=== PATIENT | female | born 1960 | race Caucasian/White ===

== ENCOUNTER → 2016-06-04 08:23 | Outpatient (CLI) | payer MEDICAID ==
[2014-07-13 11:09] VITALS: BMI 27.7
[~2016-06-04 08:23] MED LIST: ADVAIR 250/501 DISK INH; ASCORBIC ACID500 MG PO; BAYER CHEWABLE81 MG PO; CALCIUM 600 +1 EAC3 PO; FARXIGA10 MG PO; FISH OIL 1,0001 CA1 PO; GLUCOPHAGE500 MG PO; LISINOPRIL2.5 MG PO; MUCINEX600 MG PO; NEURONTIN 300300 MG PO; PEPCID40 MG PO; PRAVACHOL40 MG PO; PRILOSEC20 MG PO; SPIRIVA18 MCG INH; ULTRAM50 MG PO; VITAMIN D3400 UNI1 PO; ZYRTEC10 MG PO
[2016-06-04 09:03] LABS: HEMOGLOBIN A1C 5.7 % (4.8-6.0)
[2016-06-04 09:08] LABS: ALKALINE PHOSPHATASE 107 U/L (46-116); ALT (SGPT) 31 U/L (10-68); CALC OSMOLALITY 279 mosm/kg (275-300); CALCIUM 9.9 mg/dL (8.5-10.1); CHLORIDE - SERUM 104 mmol/L (98-107); CHOL - HDL RATIO 5.9 ratio (2.3-4.1); CHOLESTEROL, TOTAL 217 mg/dL (0-200); CREATININE - SERUM 0.7 mg/dL (0.6-1.3); GLUCOSE 105 mg/dL (74-106); HDL CHOLESTEROL 37 mg/dL (32-96); LDL CHOLESTEROL 138 mg/dL (0-100); LDL-HDL RATIO 3.7 ratio (1.5-3.5); POTASSIUM - SERUM 4.1 mmol/L (3.5-5.1); PROTEIN - SERUM 7.7 g/dL (6.4-8.2); SODIUM 139 mmol/L (136-145); TRIGLYCERIDE 212 mg/dL (30-200); UREA NITROGEN 18 mg/dL (7-18); eGFR NON AFRICAN AMERICAN > 90 mL/min (90-120)
== END | disposition home or self-care (01) ==
LOC: D.LAB 08:23
PROVIDERS: Family Medicine
DX: E78.5 Hyperlipidemia, unspecified (principal); E11.9 Type 2 diabetes mellitus without complications

== ENCOUNTER → 2016-06-09 12:35 | Outpatient (CLI) | payer MEDICAID ==
[2014-07-13 11:09] VITALS: BMI 27.7
== END | disposition home or self-care (01) ==
LOC: D.RT 12:35
DX: J45.909 Unspecified asthma, uncomplicated (principal); Z87.01 Personal history of pneumonia (recurrent)

== ENCOUNTER → 2017-03-31 09:03 | Outpatient (CLI) | payer OTHER ==
[2014-07-13 11:09] VITALS: BMI 27.7
[2017-03-31 09:58] LABS: BASOPHILS 0.6 % (0-2); EOSINOPHILS 4.7 % (0-7); HEMATOCRIT 41.1 % (36.0-48.0); HEMOGLOBIN 13.4 g/dL (12-16); IMMATURE GRANULOCYTES 0.2 % (0-5); LYMPHOCYTES 33.2 % (15-50); MCH 32.7 pg (26.0-34.0); MCHC 32.6 g/dL (31.0-37.0); MCV 100.2 fL (80.0-100.0); MEAN PLATELET VOLUME 10.6 fL (7.4-10.4); MONOCYTES 7.1 % (2-11); NEUTROPHILS 54.2 % (40-80); PLATELET COUNT 310 10x3/uL (130-400); RDW 13.8 % (11.5-14.5); WBC 8.8 10x3/uL (4.8-10.8)
[2017-03-31 10:14] LABS: HEMOGLOBIN A1C 5.6 % (4.8-6.0)
[2017-03-31 10:17] LABS: APPEARANCE CLEAR (CLEAR); COLOR YELLOW (YELLOW)
[2017-03-31 10:18] LABS: BILIRUBIN NEGATIVE (NEGATIVE); GLUCOSE 100 mg/dL (NEGATIVE); KETONE NEGATIVE (NEGATIVE); NITRITE NEGATIVE (NEGATIVE); PROTEIN NEGATIVE (NEGATIVE); UROBILINOGEN NORMAL (NORMAL)
[2017-03-31 10:19] LABS: BACTERIA FEW /hpf (NONE SEEN); EPITHELIAL CELLS OCC /hpf (0-5); RED CELLS - URINE 0-5 /hpf (0-5); WHITE CELLS - URINE 0-5 /hpf (0-5)
[2017-03-31 10:20] LABS: MUCUS <1+ /lpf (NONE SEEN)
[2017-03-31 10:22] LABS: ALBUMIN 4.1 g/dL (3.4-5.0); ALKALINE PHOSPHATASE 91 U/L (46-116); ALT (SGPT) 22 U/L (10-68); BILIRUBIN - TOTAL 0.27 mg/dL (0.2-1.3); CALC OSMOLALITY 284 mosm/kg (275-300); CHLORIDE - SERUM 105 mmol/L (98-107); CHOL - HDL RATIO 4.7 ratio (2.3-4.1); CHOLESTEROL, TOTAL 229 mg/dL (0-200); CREATININE - SERUM 0.6 mg/dL (0.6-1.3); GLUCOSE 96 mg/dL (74-106); HDL CHOLESTEROL 49 mg/dL (32-96); LDL CHOLESTEROL 134 mg/dL (0-100); LDL-HDL RATIO 2.7 ratio (1.5-3.5); POTASSIUM - SERUM 3.9 mmol/L (3.5-5.1); PROTEIN - SERUM 7.6 g/dL (6.4-8.2); SODIUM 143 mmol/L (136-145); THYROID STIMULATING HORMONE 1.68 uIU/mL (0.36-3.74); TRIGLYCERIDE 234 mg/dL (30-200); UREA NITROGEN 13 mg/dL (7-18); eGFR NON AFRICAN AMERICAN > 90 mL/min (90-120)
[2017-03-31 10:23] LABS: YEAST <1+ /hpf (NONE SEEN)
== END | disposition home or self-care (01) ==
LOC: D.LAB 09:03
PROVIDERS: Family Medicine
DX: Z00.00 Encounter for general adult medical examination without abnormal findings (principal); E11.40 Type 2 diabetes mellitus with diabetic neuropathy, unspecified; I10 Essential (primary) hypertension; E78.4 Other hyperlipidemia

== ENCOUNTER → 2017-04-28 08:21 | Outpatient (CLI) | payer OTHER ==
[2014-07-13 11:09] VITALS: BMI 27.7
[2017-04-28 08:59] LABS: CHOL - HDL RATIO 3.6 ratio (2.3-4.1)
== END | disposition home or self-care (01) ==
LOC: D.LAB 08:21
PROVIDERS: Family Medicine
DX: E78.4 Other hyperlipidemia (principal)

== ENCOUNTER → 2017-08-19 08:25 | Outpatient (CLI) | payer OTHER ==
[2014-07-13 11:09] VITALS: BMI 27.7
== END | disposition home or self-care (01) ==
LOC: D.RT 08:25
DX: J44.9 Chronic obstructive pulmonary disease, unspecified (principal)

== ENCOUNTER → 2017-08-25 08:50 | Outpatient (CLI) | payer OTHER ==
[2014-07-13 11:09] VITALS: BMI 27.7
== END | disposition home or self-care (01) ==
LOC: D.LAB 08:26
PROVIDERS: Family Medicine
DX: E11.9 Type 2 diabetes mellitus without complications (principal); E78.4 Other hyperlipidemia

== ENCOUNTER → 2018-03-25 11:15 | Outpatient (CLI) | payer OTHER ==
[2014-07-13 11:09] VITALS: BMI 27.7
== END | disposition home or self-care (01) ==
LOC: D.RAD 11:15
DX: R05 Cough (principal); R07.9 Chest pain, unspecified

== ENCOUNTER 2018-04-23 04:16 | Inpatient (IN) | payer OTHER ==
[~2018-04-23] VITALS: Ht 149.9 cm; Wt 59.0 kg
[2018-04-23 04:36] LABS: BASOPHILS 0.3 % (0-2); EOSINOPHILS 16.4 % (0-7); HEMATOCRIT 41.2 % (36.0-48.0); HEMOGLOBIN 13.6 g/dL (12-16); IMMATURE GRANULOCYTES 0.3 % (0-5); LYMPHOCYTES 16.8 % (15-50); MCH 32.3 pg (26.0-34.0); MCV 97.9 fL (80.0-100.0); MEAN PLATELET VOLUME 10.1 fL (7.4-10.4); MONOCYTES 6.1 % (2-11); NEUTROPHILS 60.1 % (40-80); PLATELET COUNT 278 10x3/uL (130-400); RBC 4.21 10x6/uL (4.00-5.40); WBC 10.7 10x3/uL (4.8-10.8)
[2018-04-23 04:44] LABS: APTT 30.3 SECONDS (22.8-39.4); INR 0.99 (0.85-1.17); PROTIME 12.6 SECONDS (11.6-15.0)
[2018-04-23 04:51] LABS: ALBUMIN 3.8 g/dL (3.4-5.0); ALKALINE PHOSPHATASE 104 U/L (46-116); ALT (SGPT) 39 U/L (10-68); BILIRUBIN - TOTAL 0.32 mg/dL (0.2-1.3); CALC OSMOLALITY 290 mosm/kg (275-300); CALCIUM 9.3 mg/dL (8.5-10.1); CARBON DIOXIDE 25.4 mmol/L (21.0-32.0); CHLORIDE - SERUM 108 mmol/L (98-107); CREATININE - SERUM 0.6 mg/dL (0.6-1.3); GLUCOSE 114 mg/dL (74-106); POTASSIUM - SERUM 3.6 mmol/L (3.5-5.1); PROTEIN - SERUM 7.9 g/dL (6.4-8.2); SODIUM 146 mmol/L (136-145); UREA NITROGEN 9 mg/dL (7-18); eGFR NON AFRICAN AMERICAN > 90 mL/min (90-120)
[2018-04-23 05:03] LABS: CKMB 1.5 U/L (0.0-3.6); CREATINE KINASE 90 UL (21-215); PRO BNP 124 pg/mL (0-125); TROPONIN-I < 0.017 ng/mL (0.000-0.060)
[2018-04-23 05:13] VITALS: BP 141/84
--- NOTE | 2018-04-23 07:43 | NUR ---
PT SITTING UP IN BED RESTING WITH EYES OPEN. RESPIRATIONS EVEN AND UNLABORED, NO S/S OF DISTRESS NOTED. O2 @ 3L VIA NC. MOOD PLEASANT, DENIES NEEDS AT THIS TIME. DRY HACKING COUGH NOTED. BED LOW AND LOCKED, SR UP X2, CL IN EASY REACH. WILL CONTINUE TO MONITOR.
[2018-04-23 09:02] VITALS: BP 157/98
[2018-04-23 13:45] VITALS: BP 142/88
--- NOTE | 2018-04-23 13:49 | MORECARE ---
CASE MANAGEMENT DISCHARGE SUMMARY PATIENT: GERALDINE RICHARDS UNIT: [id number] ADM DATE: 04/23/18 AGE: 57 : 62 SEX: F ROOM/BED: D.2220 AUTHOR: AIDEN,DOC PHYSICIAN: REFERRING PHYSICIAN: TC AGARWAL MD DATE OF SERVICE: 04/23/18 Discharge Plan Patient Name: GERALDINE RICHARDS Facility: [facility]:[place] : 1960 Planned Disposition: Home Anticipated Discharge Date: Discharge Date: Expected LOS: Initial Reviewer: [email or web address] Initial Review Date: 04/23/2018 Generated: 04/23/18 2:48 pm Comments DCP- Discharge Planning Updated by [id number]: Mili Portillo on 04/23/18 12:[address] Patient Name: GERALDINE RICHARDS Admission Status: ER Accout number: [id number] Admission Date: 04-23-2018 : 1960 Admission Diagnosis: Attending: TC AGARWAL Current LOS: 1 Anticipated DC Date: Planned Disposition: Home Primary Insurance: [employer] Discharge Planning Comments: CM met with patient to complete initial dc planning assessment. CM educated patient on the CM role and verbal consent given by patient to complete assessment. Patient lives at home with her roommate Maria Fernanda. At discharge patient plans to return there where she is independent with her care and feels this is a safe discharge. Maria Fernanda will be the one to drive her home at discharge. CM discussed availability of home health, rehab services, and medical equipment. Patient has a glucometer and a Nebulizer at home. Patient denied known discharge needs at this time. CM will continue to follow and will assist as needed with dc plans/needs. Wind Turbine Electrical Engineer: Mili Portillo DCPIA - Discharge Planning Initial Assessment Updated by [id number]: Mili Portillo on 04/23/18 1:46 pm * Is the patient Alert and Oriented? Yes * How many steps to enter\exit or inside your home? * PCP STEFANO * Pharmacy [facility] * Preadmission Environment Home with Family * ADLs Independent * Equipment Glucometer Nebulizer * List name and contact numbers for known caregivers / representatives who currently or will assist patient after discharge: MARIA FERNANDA BRAR [phone] * Verbal permission to speak to the caregivers and representatives has been obtained from the patient. N/A * Community resources currently utilized None * Additional services required to return to the preadmission environment? No * Can the patient safely return to the preadmission environment? Yes * Has this patient been hospitalized within the prior 30 days at any hospital? No Patient Name: GERALDINE RICHARDS Page [id number] at 1349 All edits/amendments must be made on the electronic document DICTATION DATE: 04/23/18 1348 CARDIAC TECHNICIAN: ASHLEY 04/23/18 1348 RPT#: [id number] DC DATE: STATUS: ADM IN [facility] [address] [place] [address] END OF REPORT
[2018-04-23 14:25] VITALS: BP 163/85
[2018-04-23 16:45] VITALS: BP 155/87
--- NOTE | 2018-04-23 19:00 | NUR ---
BEDSIDE REPORT RECEIVED AND CARE OF PT ASSUMED. PT LYING IN SEMI MIN'S POSITION. IV IN LEFT FA PATENT WITH NS INFUSING AT KVO. O2 IN USE VIA NC AT 2L. WILL MONITOR FOR NEEDS.
[2018-04-23 20:00] VITALS: BP 157/73
--- NOTE | 2018-04-23 21:30 | NUR ---
HS MEDICATIONS GIVEN. FSBS 179 THIS CHECK REQUIRING COVERAGE WITH 2 UNITS OF INSULIN PER SLIDING SCALE. WILL CONTINUE TO MONITOR FOR NEEDS. CALL LIGHT WITHIN REACH.
--- NOTE | 2018-04-23 23:01 | NUR ---
SALINE LOCKED IV. LUNGS SOUNDS IMPROVING WITH THE SLIGHTEST OF EXPIRATORY WHEEZES PRESENT. WILL CONTINUE TO MONITOR FOR NEEDS. CALL LIGHT WITHIN REACH.
[2018-04-24 04:00] VITALS: BP 137/70
[2018-04-24 07:35] LABS: ALBUMIN 3.6 g/dL (3.4-5.0); ALKALINE PHOSPHATASE 88 U/L (46-116); ALT (SGPT) 30 U/L (10-68); BILIRUBIN - TOTAL 0.28 mg/dL (0.2-1.3); CALC OSMOLALITY 292 mosm/kg (275-300); CALCIUM 9.2 mg/dL (8.5-10.1); CARBON DIOXIDE 22.9 mmol/L (21.0-32.0); CHLORIDE - SERUM 108 mmol/L (98-107); CHOL - HDL RATIO 2.4 ratio (2.3-4.1); CHOLESTEROL, TOTAL 161 mg/dL (0-200); CREATININE - SERUM 0.5 mg/dL (0.6-1.3); GLUCOSE 146 mg/dL (74-106); HDL CHOLESTEROL 67 mg/dL (32-96); LDL CHOLESTEROL 82 mg/dL (0-100); LDL-HDL RATIO 1.2 ratio (1.5-3.5); MAGNESIUM - SERUM 1.9 mg/dL (1.8-2.4); PHOSPHOROUS 3.6 mg/dL (2.5-4.9); POTASSIUM - SERUM 3.6 mmol/L (3.5-5.1); PROTEIN - SERUM 7.5 g/dL (6.4-8.2); SODIUM 145 mmol/L (136-145); TRIGLYCERIDE 61 mg/dL (30-200); UREA NITROGEN 16 mg/dL (7-18); eGFR NON AFRICAN AMERICAN > 90 mL/min (90-120)
--- NOTE | 2018-04-24 08:10 | NUR ---
PT LAYING IN BED THIS AM WITH EYES OPEN. RESPIRATIONS EVEN AND UNLABORED, NO S/S OF DISTRESS. O2 @ 2L VIA NC. DENIES SOB. EXPIRATORY WHEEZES NOTED IN LEFT UPPER LOBE AND LEFT LOWER LOBE. CLEAR ON RIGHT SIDE. IV TO LEFT FOREARM, SALINE LOCKED. NO REDNESS OR EDEMA NOTED. BED LOW AND LOCKED, SR UP X2, CL IN EASY REACH. DENIES NEEDS.
--- NOTE | 2018-04-24 10:38 | NUR ---
CALLED INTO ROOM BY PT, REQUESTED THAT HER IV BE REMOVED AND RESITED DUE TO IT CAUSING IRRITATION. IV REMOVED, TIP INTACT. TO BE RESITED WHEN PT GETS CLEANED UP. CL IN EASY REACH.
[2018-04-24 10:58] VITALS: BP 140/79
[2018-04-24 14:18] VITALS: BP 126/73
--- NOTE | 2018-04-24 14:38 | NUR ---
IV RESITED TO LEFT WRIST X1 STICK. PT TOLERATED PROCEDURE WELL. IV FLUSHES EASY AND HAS GOOD DRAW BACK. SWAB CAPS IN USE, DENIES NEEDS AT THIS TIME. ROUTINE MEDICATIONS GIVEN. CL IN EASY REACH.
[2018-04-24 15:25] VITALS: BMI 26.2
[2018-04-24 17:57] VITALS: BP 143/78
--- NOTE | 2018-04-24 18:15 | NUR ---
PATIENT UP AMBULATING AT THIS TIME. NO COMPLAINTS OR SIGNS OF DISTRESS.
--- NOTE | 2018-04-24 19:00 | NUR ---
BEDSIDE REPORT RECEIVED AND CARE OF PT ASSUMED. PT UP AMBULATING IN ROOM AT THIS TIME. OW IN USE VIA NC AT 2L. IV IN LEFT WRIST SALINE LOCKED. WILL MONITOR FOR NEEDS.
[2018-04-24 20:00] VITALS: BP 119/63
--- NOTE | 2018-04-24 20:46 | NUR ---
HS MEDICATIONS GIVEN. FSBS 174 THIS CHECK REQUIRING COVERAGE WITH 2 UNITS OF INSULIN PER SLIDING SCALE. WILL CONTINUE TO MONITOR FOR NEEDS. CALL LIGHT WITHIN REACH.
[2018-04-25] VITALS: BP 102/59
[2018-04-25 04:00] VITALS: BP 110/73
[2018-04-25 08:42] VITALS: BP 136/71
[2018-04-25 13:36] VITALS: BP 132/69
[2018-04-25 17:51] VITALS: BP 149/84
[2018-04-25 21:20] VITALS: BP 151/77
--- NOTE | 2018-04-25 22:15 | NUR ---
PT ALERT & ORIENTED. PRODUCTIVE COUGH. GAVE SCHEDULED MEDS. FSBS 130 - NO INSULIN PER SS. ASSESSMENT COMPLETE PER FLOW-SHEET. WILL CONTINUE TO MONITOR.
[2018-04-26 02:06] VITALS: BP 124/77
[2018-04-26 06:00] VITALS: BP 119/75
[2018-04-26 06:55] LABS: BASOPHILS 0.1 % (0-2); EOSINOPHILS 0 % (0-7); HEMATOCRIT 36.5 % (36.0-48.0); HEMOGLOBIN 11.9 g/dL (12-16); IMMATURE GRANULOCYTES 0.5 % (0-5); MCH 32.2 pg (26.0-34.0); MCHC 32.6 g/dL (31.0-37.0); MCV 98.6 fL (80.0-100.0); MEAN PLATELET VOLUME 10.2 fL (7.4-10.4); MONOCYTES 6.5 % (2-11); NEUTROPHILS 82.9 % (40-80); PLATELET COUNT 307 10x3/uL (130-400); RDW 14.1 % (11.5-14.5); WBC 12.7 10x3/uL (4.8-10.8)
[2018-04-26 07:02] LABS: CALC OSMOLALITY 290 mosm/kg (275-300); CALCIUM 9.3 mg/dL (8.5-10.1); CARBON DIOXIDE 23.5 mmol/L (21.0-32.0); CHLORIDE - SERUM 107 mmol/L (98-107); CREATININE - SERUM 0.6 mg/dL (0.6-1.3); GLUCOSE 147 mg/dL (74-106); POTASSIUM - SERUM 3.7 mmol/L (3.5-5.1); SODIUM 143 mmol/L (136-145); UREA NITROGEN 20 mg/dL (7-18); eGFR NON AFRICAN AMERICAN > 90 mL/min (90-120)
--- NOTE | 2018-04-26 07:15 | NUR ---
MORNING ASSESSMENT COMPLETE. SEE ASSESSMENT FLOWSHEET FOR FURTHER DETAILS. PT WALKING FLOOR. DENIES NEEDS AT THIS TIME. CL IN REACH.
[2018-04-26 08:07] VITALS: BP 143/77
--- NOTE | 2018-04-26 10:54 | NUR ---
PT C/O BURNING AT IV SITE. RESITED PIC TO R WRIST- 20 G. FLUSHES WELL. PT TOLERATED WELL.
[2018-04-26 17:09] VITALS: BP 156/77
[2018-04-26 20:39] VITALS: BP 130/83
[2018-04-27] VITALS (15 sets, daily range): BP systolic 116–149; BP diastolic 60–85; Ht 149.9 cm; Wt 59.0 kg
[2018-04-28] VITALS: BP 112/79
[2018-04-28 06:05] VITALS: BP 150/77
--- NOTE | 2018-04-28 07:53 | NUR ---
PT SITTING UP IN BED "WAITING ON BREAKFAST". "ABLE TO BREATH SO MUCH BETTER". 98% ON RA. NO S/S OF ACUTE DISTRESS. CL IN PLACE.
[2018-04-28 08:27] VITALS: BP 122/71
--- NOTE | 2018-04-28 10:26 | NUR ---
IV RED AND ROBERSON WHEN FLUSHED. DC WITH TIP INTACT. RESITED TO R WRIST. FLUSHED WELL. NO S/S OF ACUTE DISTRESS. CL IN PLACE.
[2018-04-28 12:53] VITALS: BP 142/76
[2018-04-28 15:47] VITALS: BP 155/81
--- NOTE | 2018-04-28 18:14 | NUR ---
PT SITTING UP IN BED VISITING WITH FRIEND. NO S/S OF ACUTE DISTRESS. CL IN PLACE.
--- NOTE | 2018-04-28 20:00 | NUR ---
ASSESSMENT PER FLOWSHEET. IV PATENT RT ARM SALINE LOCKED. SITTING IN CHAIR AT BEDSIDE.
--- NOTE | 2018-04-28 20:30 | NUR ---
MEDS GIVEN PER MAR.
[2018-04-28 21:36] VITALS: BP 135/98
--- NOTE | 2018-04-29 | NUR ---
EYES CLOSED RESPIRATIONS WITH EASE AND UNLABORED.
--- NOTE | 2018-04-29 01:51 | NUR ---
ANTIBIOTIC COMPLETED. IV SALINE LOCKED. PT UP AD SAIGE IN HALLWAY.
[2018-04-29 05:44] VITALS: BP 162/69
--- NOTE | 2018-04-29 06:47 | NUR ---
FSBS=93 NO COVERAGE
--- NOTE | 2018-04-29 07:25 | NUR ---
PATIENT SITTING UP IN CHAIR, DENIES NEEDS AT THIS TIME, CL IN REACH
[2018-04-29 08:55] VITALS: BP 121/68
[2018-04-29 15:20] LABS: ACID FAST SMEAR Positive (()); AFB SPECIMEN PROCESSING Concentration (())
[2018-04-29 15:20] LABS: ACID FAST SMEAR Positive (()); AFB SPECIMEN PROCESSING Concentration (())
[2018-04-29 15:20] LABS: ACID FAST SMEAR Negative (()); AFB SPECIMEN PROCESSING Concentration (())
[2018-04-29 15:20] LABS: ACID FAST SMEAR Positive (()); AFB SPECIMEN PROCESSING Concentration (())
[2018-04-29 17:11] VITALS: BP 127/87
[2018-04-29 20:00] VITALS: BP 137/77
--- NOTE | 2018-04-29 20:00 | NUR ---
UP AMBULATING IN [place] DENIES ANY NEEDS AT THIS TIME
[2018-04-30] VITALS: BP 125/70
--- NOTE | 2018-04-30 03:15 | NUR ---
IV RESITED TO RIGHT AC DUE TO PAIN AND REDNESS AT SITE
[2018-04-30 04:00] VITALS: BP 131/72
[2018-04-30] MEDS ORDERED: LISINOPRIL10 MG PO (07:19)
[2018-04-30] MEDS ORDERED: FLORAJEN3 CAPS460 MG PO (07:20)
[2018-04-30] MEDS ORDERED: DOXYCYCLINE HY100 M2 PO (07:23)
[2018-04-30] MEDS ORDERED: CRESTOR10 MG PO (07:45)
[2018-04-30] MEDS ORDERED: JARDIANCE25 MG PO (07:45)
[2018-04-30] MEDS ORDERED: PROTONIX40 MG PO (07:45)
[2018-04-30] MEDS ORDERED: BACLOFEN10 MG PO (07:45)
--- NOTE | 2018-04-30 08:00 | MORECARE ---
CASE MANAGEMENT DISCHARGE SUMMARY PATIENT: GERALDINE RICHARDS UNIT: [id number] ADM DATE: 04/23/18 AGE: 57 : 62 SEX: F ROOM/BED: D.2220 AUTHOR: AIDEN,DOC PHYSICIAN: REFERRING PHYSICIAN: TC AGARWAL MD DATE OF SERVICE: 04/30/18 Discharge Plan Patient Name: GERALDINE RICHARDS Facility: [facility]:[place] : 1960 Planned Disposition: Home Anticipated Discharge Date: Discharge Date: Expected LOS: Initial Reviewer: [email or web address] Initial Review Date: 04/23/2018 Generated: 04/30/18 9:00 am Comments DCP- Discharge Planning Updated by [id number]: Mili Portillo on 04/30/18 6:[address] Patient Name: GERALDINE RICHARDS Encounter No: [id number] : 1960 Primary Insurance: [employer] Anticipated DC Date: Planned Disposition: Home External Planned Provider: : DCP follow-up note: Patient and family in agreement with discharge plan. IMM served and explained, copy placed on chart. No changes to plan. Case management will follow and assist as needed. Mili Portillo DCP- Discharge Planning Updated by [id number]: Mili Portillo on 04/23/18 12:[address] Patient Name: GERALDINE RICHARDS Admission Status: ER Accout number: [id number] Admission Date: 04-23-2018 : 1960 Admission Diagnosis: Attending: TC AGARWAL Current LOS: 1 Anticipated DC Date: Planned Disposition: Home Primary Insurance: [employer] Discharge Planning Comments: CM met with patient to complete initial dc planning assessment. CM educated patient on the CM role and verbal consent given by patient to complete assessment. Patient lives at home with her roommate Maria Fernanda. At discharge patient plans to return there where she is independent with her care and feels this is a safe discharge. Maria Fernanda will be the one to drive her home at discharge. CM discussed availability of home health, rehab services, and medical equipment. Patient has a glucometer and a Nebulizer at home. Patient denied known discharge needs at this time. CM will continue to follow and will assist as needed with dc plans/needs. Machine Tracer: Mili Portillo DCPIA - Discharge Planning Initial Assessment Updated by [id number]: Mili Portillo on 04/23/18 1:46 pm * Is the patient Alert and Oriented? Yes * How many steps to enter\exit or inside your home? * PCP STEFANO * Pharmacy [facility] * Preadmission Environment Home with Family * ADLs Independent * Equipment Glucometer Nebulizer * List name and contact numbers for known caregivers / representatives who currently or will assist patient after discharge: MARIA FERNANDA BRAR [phone] * Verbal permission to speak to the caregivers and representatives has been obtained from the patient. N/A * Community resources currently utilized None * Additional services required to return to the preadmission environment? No * Can the patient safely return to the preadmission environment? Yes * Has this patient been hospitalized within the prior 30 days at any hospital? No Coverage Notice Reviewer: [id number] - Mili Portillo Notice Issued Date-Time: 04/30/2018 7:50 Notice Type: IM Discharge Notice Notice Delivered To: Patient Relationship to Patient: Mac Developer Name: Delivery Method: HAND - Hand Delivered Ana Days: Prior Verbal Notification: Recipient Understood Notice: Yes Recipient Signature: Yes Med Rec Note Co-signed by Attending: Coverage Notice Comment: Last DP export: 04/23/18 12:49 p Patient Name: GERALDINE RICHARDS Page 88116 at 0800 All edits/amendments must be made on the electronic document DICTATION DATE: 04/30/18 0800 CAR RIDER: ASHLEY 04/30/18 0800 RPT#: [id number] DC DATE: STATUS: ADM IN [facility] [address] [place] [address] END OF REPORT
[2018-04-30 08:40] VITALS: BP 131/86
--- NOTE | 2018-04-30 09:05 | NUR ---
PATIENT STATED SHE HAS ALREADY HAD THE FLU SHOT , COULDNT CORRECT IN HX
[2018-04-30 14:17] LABS: FUNGUS STAIN Final report (())
[2018-04-30 14:17] LABS: FUNGUS STAIN Final report (())
[2018-04-30 14:17] LABS: FUNGUS STAIN Final report (())
[2018-04-30 14:17] LABS: FUNGUS STAIN Final report (())
--- NOTE | 2018-05-04 15:16 | MORECARE ---
CASE MANAGEMENT DISCHARGE SUMMARY PATIENT: GERALDINE RICHARDS UNIT: [id number] ADM DATE: 04/23/18 AGE: 57 : 62 SEX: F ROOM/BED: D.2220 AUTHOR: AIDEN,DOC PHYSICIAN: REFERRING PHYSICIAN: TC AGARWAL MD DATE OF SERVICE: 05/04/18 Discharge Plan Patient Name: GERALDINE RICHARDS Facility: [facility]:[place] : 1960 Planned Disposition: Home Anticipated Discharge Date: Discharge Date: 04/30/2018 Expected LOS: 0 Initial Reviewer: [email or web address] Initial Review Date: 04/23/2018 Generated: 05/04/18 4:15 pm Comments DCP- Discharge Planning Updated by [id number]: Mili Portillo on 04/30/18 6:[address] Patient Name: GERALDINE RICHARDS Encounter No: [id number] : 1960 Primary Insurance: [employer] Anticipated DC Date: Planned Disposition: Home External Planned Provider: : DCP follow-up note: Patient and family in agreement with discharge plan. IMM served and explained, copy placed on chart. No changes to plan. Case management will follow and assist as needed. Mili Portillo DCP- Discharge Planning Updated by [id number]: Mili Portillo on 04/23/18 12:[address] Patient Name: GERALDINE RICHARDS Admission Status: ER Accout number: [id number] Admission Date: 04-23-2018 : 1960 Admission Diagnosis: Attending: TC AGARWAL Current LOS: 1 Anticipated DC Date: Planned Disposition: Home Primary Insurance: [employer] Discharge Planning Comments: CM met with patient to complete initial dc planning assessment. CM educated patient on the CM role and verbal consent given by patient to complete assessment. Patient lives at home with her roommate Maria Fernanda. At discharge patient plans to return there where she is independent with her care and feels this is a safe discharge. Maria Fernanda will be the one to drive her home at discharge. CM discussed availability of home health, rehab services, and medical equipment. Patient has a glucometer and a Nebulizer at home. Patient denied known discharge needs at this time. CM will continue to follow and will assist as needed with dc plans/needs. Gaming Department Head: Mili Portillo DCPIA - Discharge Planning Initial Assessment Updated by [email or web address]: Mili Portillo on 04/23/18 1:46 pm * Is the patient Alert and Oriented? Yes * How many steps to enter\exit or inside your home? * PCP STEFANO * Pharmacy [facility] * Preadmission Environment Home with Family * ADLs Independent * Equipment Glucometer Nebulizer * List name and contact numbers for known caregivers / representatives who currently or will assist patient after discharge: MARIA FERNANDA BRAR [phone] * Verbal permission to speak to the caregivers and representatives has been obtained from the patient. N/A * Community resources currently utilized None * Additional services required to return to the preadmission environment? No * Can the patient safely return to the preadmission environment? Yes * Has this patient been hospitalized within the prior 30 days at any hospital? No Coverage Notice Reviewer: [id number] - Mili Portillo Notice Issued Date-Time: 04/30/2018 7:50 Notice Type: IM Discharge Notice Notice Delivered To: Patient Relationship to Patient: Compatibility Test Engineer Name: Delivery Method: HAND - Hand Delivered Ana Days: Prior Verbal Notification: Recipient Understood Notice: Yes Recipient Signature: Yes Med Rec Note Co-signed by Attending: Coverage Notice Comment: Last DP export: 04/30/18 7:00 a Patient Name: GERALDINE RICHARDS Page [id number] at 1516 All edits/amendments must be made on the electronic document DICTATION DATE: 05/04/185 ARM REST BUILDER: ASHLEY 05/04/18 1515 RPT#: [id number] DC DATE:04/30/18 STATUS: DIS IN [facility] [address] [place] [address] END OF REPORT
[2018-05-05 10:21] LABS: FUNGUS CULTURE RESULT 1 Aspergillus niger (()); FUNGUS MYCOLOGY CULTURE Preliminary report (())
[2018-05-05 10:21] LABS: FUNGUS MYCOLOGY CULTURE Preliminary report (())
[2018-05-05 10:21] LABS: FUNGUS MYCOLOGY CULTURE Preliminary report (())
[2018-05-05 10:21] LABS: FUNGUS CULTURE RESULT 1 Aspergillus niger (()); FUNGUS CULTURE RESULT 2 Candida albicans (()); FUNGUS MYCOLOGY CULTURE Final report (())
== END 2018-04-30 10:16 | disposition home or self-care (01) | DRG 191 ==
LOC: D.ER 04:16 → D.MS 05:38
PROVIDERS: Family Medicine; Internal Medicine Pulmonary Disease; ADMIT Family Medicine
PROC: 0BDG8ZX Extraction of Left Upper Lung Lobe, Via Natural or Artificial Opening Endoscopic, Diagnostic (ICD-10-PCS; 2018-04-27)
PROC: 0B9G8ZX Drainage of Left Upper Lung Lobe, Via Natural or Artificial Opening Endoscopic, Diagnostic (ICD-10-PCS; 2018-04-27)
PROC: 0BCB8ZZ Extirpation of Matter from Left Lower Lobe Bronchus, Via Natural or Artificial Opening Endoscopic (ICD-10-PCS; principal; 2018-04-27 18:10)
DX: J44.1 Chronic obstructive pulmonary disease with (acute) exacerbation (principal); T17.590A Other foreign object in bronchus causing asphyxiation, initial encounter; J98.4 Other disorders of lung; E11.9 Type 2 diabetes mellitus without complications; E78.5 Hyperlipidemia, unspecified; K21.9 Gastro-esophageal reflux disease without esophagitis; I10 Essential (primary) hypertension; J98.09 Other diseases of bronchus, not elsewhere classified

== ENCOUNTER → 2018-06-15 14:48 | Outpatient (CLI) | payer OTHER ==
[2018-04-27 10:32] VITALS: BMI 26.2
[~2018-06-15 14:48] MED LIST changes: +BACLOFEN10 MG PO; +CRESTOR10 MG PO; +DOXYCYCLINE HY100 M2 PO; +FLORAJEN3 CAPS460 MG PO; +JARDIANCE25 MG PO; +LISINOPRIL10 MG PO; +PROTONIX40 MG PO
[2018-06-15 21:49] LABS: BASOPHILS 0.7 % (0-2); EOSINOPHILS 7.9 % (0-7); HEMATOCRIT 38.3 % (36.0-48.0); HEMOGLOBIN 12.3 g/dL (12-16); IMMATURE GRANULOCYTES 0.3 % (0-5); MCH 31.6 pg (26.0-34.0); MCHC 32.1 g/dL (31.0-37.0); MCV 98.5 fL (80.0-100.0); MEAN PLATELET VOLUME 10.4 fL (7.4-10.4); MONOCYTES 7.7 % (2-11); NEUTROPHILS 55.4 % (40-80); PLATELET COUNT 307 10x3/uL (130-400); RBC 3.89 10x6/uL (4.00-5.40); RDW 13.8 % (11.5-14.5); WBC 8.7 10x3/uL (4.8-10.8)
[2018-06-15 22:07] LABS: ALBUMIN 3.6 g/dL (3.4-5.0); ALKALINE PHOSPHATASE 92 U/L (46-116); ALT (SGPT) 46 U/L (10-68); BILIRUBIN - TOTAL 0.17 mg/dL (0.2-1.3); CALC OSMOLALITY 290 mosm/kg (275-300); CALCIUM 8.7 mg/dL (8.5-10.1); CHLORIDE - SERUM 109 mmol/L (98-107); CREATININE - SERUM 0.6 mg/dL (0.6-1.3); POTASSIUM - SERUM 3.5 mmol/L (3.5-5.1); PROTEIN - SERUM 6.7 g/dL (6.4-8.2); SODIUM 147 mmol/L (136-145); UREA NITROGEN 12 mg/dL (7-18); eGFR NON AFRICAN AMERICAN > 90 mL/min (90-120)
[2018-06-15 22:10] LABS: GLUCOSE 75 mg/dL (74-106)
[2018-06-20 13:07] LABS: ASPERGILLUS - FLAVUS Negative (Neg:<1:1); ASPERGILLUS - FUMIGATUS Negative (Neg:<1:1); ASPERGILLUS - NIGER Negative (Neg:<1:1)
[2018-06-30 05:12] LABS: IMMUNOGLOBULIN E 6496 IU/mL (6-495)
== END | disposition home or self-care (01) ==
LOC: D.LABREF 14:48
PROVIDERS: ATTEND Student in an Organized Health Care Education/Training Program
DX: B44.9 Aspergillosis, unspecified (principal); Z11.4 Encounter for screening for human immunodeficiency virus [HIV]; Z51.81 Encounter for therapeutic drug level monitoring; Z79.899 Other long term (current) drug therapy

== ENCOUNTER → 2018-06-23 09:27 | Outpatient (CLI) | payer OTHER ==
[2018-04-27 10:32] VITALS: BMI 26.2
[2018-06-23 10:20] LABS: CHOL - HDL RATIO 4.2 ratio (2.3-4.1); LDL-HDL RATIO 2.6 ratio (1.5-3.5)
== END | disposition home or self-care (01) ==
LOC: D.LAB 09:27
PROVIDERS: ATTEND Family Medicine
DX: J44.9 Chronic obstructive pulmonary disease, unspecified (principal); M54.9 Dorsalgia, unspecified; Z00.00 Encounter for general adult medical examination without abnormal findings; E11.9 Type 2 diabetes mellitus without complications; A31.0 Pulmonary mycobacterial infection

== ENCOUNTER → 2018-07-16 19:20 | Outpatient (CLI) | payer OTHER, MEDICAID ==
[2018-04-27 10:32] VITALS: BMI 26.2
[2018-07-16 20:50] LABS: BASOPHILS 0.7 % (0-2); EOSINOPHILS 3.8 % (0-7); HEMATOCRIT 41.9 % (36.0-48.0); HEMOGLOBIN 13.8 g/dL (12-16); IMMATURE GRANULOCYTES 0.4 % (0-5); LYMPHOCYTES 23.7 % (15-50); MCH 32.1 pg (26.0-34.0); MCHC 32.9 g/dL (31.0-37.0); MCV 97.4 fL (80.0-100.0); MEAN PLATELET VOLUME 11.3 fL (7.4-10.4); MONOCYTES 9.7 % (2-11); NEUTROPHILS 61.7 % (40-80); PLATELET COUNT 249 10x3/uL (130-400); RDW 13.3 % (11.5-14.5); WBC 7.7 10x3/uL (4.8-10.8)
[2018-07-16 21:09] LABS: ALBUMIN 4.2 g/dL (3.4-5.0); ALKALINE PHOSPHATASE 111 U/L (46-116); ALT (SGPT) 33 U/L (10-68); BILIRUBIN - TOTAL 0.29 mg/dL (0.2-1.3); CALC OSMOLALITY 284 mosm/kg (275-300); CALCIUM 9.6 mg/dL (8.5-10.1); CARBON DIOXIDE 24.3 mmol/L (21.0-32.0); CHLORIDE - SERUM 104 mmol/L (98-107); CREATININE - SERUM 0.6 mg/dL (0.6-1.3); POTASSIUM - SERUM 3.8 mmol/L (3.5-5.1); PROTEIN - SERUM 7.6 g/dL (6.4-8.2); SODIUM 144 mmol/L (136-145); UREA NITROGEN 13 mg/dL (7-18); eGFR NON AFRICAN AMERICAN > 90 mL/min (90-120)
[2018-07-16 21:10] LABS: GLUCOSE 70 mg/dL (74-106)
== END | disposition home or self-care (01) ==
LOC: D.LABREF 19:20
PROVIDERS: ATTEND Student in an Organized Health Care Education/Training Program
DX: Z51.81 Encounter for therapeutic drug level monitoring (principal); Z79.899 Other long term (current) drug therapy

== ENCOUNTER → 2018-08-03 17:39 | Outpatient (CLI) | payer OTHER ==
[2018-04-27 10:32] VITALS: BMI 26.2
== END | disposition home or self-care (01) ==
LOC: D.MAMMO 13:30
PROVIDERS: ATTEND Family Medicine
DX: Z12.31 Encounter for screening mammogram for malignant neoplasm of breast (principal)

== ENCOUNTER → 2018-08-27 17:40 | Outpatient (CLI) | payer OTHER ==
[2018-04-27 10:32] VITALS: BMI 26.2
[2018-08-27 18:32] LABS: BASOPHILS 0.7 % (0-2); HEMATOCRIT 40.5 % (36.0-48.0); HEMOGLOBIN 13.7 g/dL (12-16); IMMATURE GRANULOCYTES 0.3 % (0-5); LYMPHOCYTES 31.2 % (15-50); MCH 32.4 pg (26.0-34.0); MCHC 33.8 g/dL (31.0-37.0); MCV 95.7 fL (80.0-100.0); MEAN PLATELET VOLUME 11.2 fL (7.4-10.4); MONOCYTES 9.9 % (2-11); NEUTROPHILS 53.9 % (40-80); PLATELET COUNT 235 10x3/uL (130-400); RBC 4.23 10x6/uL (4.00-5.40); RDW 13.6 % (11.5-14.5); WBC 8.7 10x3/uL (4.8-10.8)
[2018-08-27 18:44] LABS: ALBUMIN 4.2 g/dL (3.4-5.0); ALKALINE PHOSPHATASE 99 U/L (46-116); ALT (SGPT) 43 U/L (10-68); BILIRUBIN - TOTAL 0.36 mg/dL (0.2-1.3); CALC OSMOLALITY 283 mosm/kg (275-300); CALCIUM 9.8 mg/dL (8.5-10.1); CARBON DIOXIDE 25.1 mmol/L (21.0-32.0); CHLORIDE - SERUM 105 mmol/L (98-107); CREATININE - SERUM 0.6 mg/dL (0.6-1.3); PROTEIN - SERUM 7.5 g/dL (6.4-8.2); SODIUM 143 mmol/L (136-145); UREA NITROGEN 14 mg/dL (7-18); eGFR NON AFRICAN AMERICAN > 90 mL/min (90-120)
[2018-08-27 18:47] LABS: GLUCOSE 54 mg/dL (74-106)
[2018-08-31 20:06] LABS: AFB SPECIMEN PROCESSING Concentration (())
[2018-09-22 15:10] LABS: ACID FAST CULTURE Positive (()); ACID FAST SMEAR Negative (()); M TUBERCULOSIS Negative (())
[2018-10-06 15:10] LABS: AMIKACIN 8.0 ug/mL (())
== END | disposition home or self-care (01) ==
LOC: D.LABREF 17:40
PROVIDERS: ATTEND Student in an Organized Health Care Education/Training Program
DX: A31.0 Pulmonary mycobacterial infection (principal); Z51.81 Encounter for therapeutic drug level monitoring; Z79.899 Other long term (current) drug therapy; Z11.59 Encounter for screening for other viral diseases

== ENCOUNTER → 2018-12-09 07:40 | Outpatient (CLI) | payer OTHER ==
[2018-04-27 10:32] VITALS: BMI 26.2
[2018-12-09 09:55] LABS: BASOPHILS 0.7 % (0-2); EOSINOPHILS 2.5 % (0-7); HEMATOCRIT 39.4 % (36.0-48.0); HEMOGLOBIN 12.8 g/dL (12-16); IMMATURE GRANULOCYTES 0.1 % (0-5); LYMPHOCYTES 29.4 % (15-50); MCH 33.2 pg (26.0-34.0); MCHC 32.5 g/dL (31.0-37.0); MCV 102.1 fL (80.0-100.0); MEAN PLATELET VOLUME 10.4 fL (7.4-10.4); MONOCYTES 10.7 % (2-11); NEUTROPHILS 56.6 % (40-80); PLATELET COUNT 220 10x3/uL (130-400); RBC 3.86 10x6/uL (4.00-5.40); RDW 13.3 % (11.5-14.5); WBC 6.9 10x3/uL (4.8-10.8)
[2018-12-09 10:15] LABS: ALKALINE PHOSPHATASE 90 U/L (46-116); ALT (SGPT) 47 U/L (10-68); BILIRUBIN - TOTAL 0.15 mg/dL (0.2-1.3); CALC OSMOLALITY 288 mosm/kg (275-300); CALCIUM 8.8 mg/dL (8.5-10.1); CARBON DIOXIDE 29.4 mmol/L (21.0-32.0); CHLORIDE - SERUM 108 mmol/L (98-107); CREATININE - SERUM 0.5 mg/dL (0.6-1.3); POTASSIUM - SERUM 3.5 mmol/L (3.5-5.1); SODIUM 145 mmol/L (136-145); UREA NITROGEN 11 mg/dL (7-18); eGFR NON AFRICAN AMERICAN > 90 mL/min (90-120)
[2018-12-09 10:20] LABS: GLUCOSE 109 mg/dL (74-106)
== END | disposition home or self-care (01) ==
LOC: D.RT 07:40
PROVIDERS: ATTEND Internal Medicine Pulmonary Disease
DX: J44.9 Chronic obstructive pulmonary disease, unspecified (principal)

== ENCOUNTER → 2019-07-26 12:01 | Outpatient (CLI) | payer OTHER ==
[2018-04-27 10:32] VITALS: BMI 26.2
== END | disposition home or self-care (01) ==
LOC: D.RAD 06-09 10:15
PROVIDERS: ATTEND Internal Medicine Pulmonary Disease
DX: J44.9 Chronic obstructive pulmonary disease, unspecified (principal)

== ENCOUNTER → 2019-09-02 09:46 | Outpatient (CLI) | payer OTHER ==
[2018-04-27 10:32] VITALS: BMI 26.2
== END | disposition home or self-care (01) ==
LOC: D.CT 09:46
PROVIDERS: ATTEND Internal Medicine Pulmonary Disease
DX: A31.0 Pulmonary mycobacterial infection (principal)

== ENCOUNTER → 2019-09-20 10:33 | Outpatient (CLI) | payer OTHER ==
[2018-04-27 10:32] VITALS: BMI 26.2
[2019-09-20 11:47] LABS: CHOL - HDL RATIO 2.8 ratio (2.3-4.1); LDL-HDL RATIO 1.6 ratio (1.5-3.5)
== END | disposition home or self-care (01) ==
LOC: D.LAB 10:33
PROVIDERS: ATTEND Family Medicine
DX: A31.0 Pulmonary mycobacterial infection (principal); E78.49 Other hyperlipidemia

== ENCOUNTER → 2020-05-14 12:08 | Day surgery (SDC) | payer OTHER ==
[2018-04-27 10:32] VITALS: BMI 26.2
[2020-05-14 12:44] LABS: BASOPHILS 0.6 % (0-2); HEMATOCRIT 35.2 % (36.0-48.0); HEMOGLOBIN 11.3 g/dL (12-16); IMMATURE GRANULOCYTES 0.5 % (0-5); LYMPHOCYTE ABS# 2.35 10x3/uL (1.18-3.74); LYMPHOCYTES 29.1 % (15-50); MCH 33.1 pg (26.0-34.0); MCHC 32.1 g/dL (31.0-37.0); MCV 103.2 fL (80.0-100.0); MEAN PLATELET VOLUME 9.5 fL (7.4-10.4); MONOCYTES 8.2 % (2-11); NEUTROPHIL ABS# 4.74 10x3/uL (1.56-6.13); NEUTROPHILS 58.6 % (40-80); PLATELET COUNT 212 10x3/uL (130-400); RBC 3.41 10x6/uL (4.00-5.40); RDW 13.2 % (11.5-14.5); WBC 8.1 10x3/uL (4.8-10.8)
[2020-05-14 12:58] LABS: ALBUMIN 3.4 g/dL (3.4-5.0); ANION GAP 12.5 mmol/L (8-16); BILIRUBIN - TOTAL 0.22 mg/dL (0.2-1.3); CALCIUM 8.8 mg/dL (8.5-10.1); CARBON DIOXIDE 26.1 mmol/L (21.0-32.0); CHOL - HDL RATIO 2.1 ratio (2.3-4.1); CREATININE - SERUM 0.9 mg/dL (0.6-1.3); CREATININE - URINE 39.9 mg/dL (30-125); LDL-HDL RATIO 0.9 ratio (1.5-3.5); POTASSIUM - SERUM 3.6 mmol/L (3.5-5.1); PROTEIN - SERUM 6.6 g/dL (6.4-8.2); PROTEIN - URINE 8.9 mg/dL (0.0-11.9)
[2020-05-14 13:48] LABS: BACTERIA FEW HPF (NONE SEEN); BILIRUBIN NEGATIVE (NEGATIVE); KETONE NEGATIVE (NEGATIVE); NITRITE NEGATIVE (NEGATIVE); SQUAMOUS EPITHELIAL OCC HPF (0-4); UROBILINOGEN NORMAL mg/dL (< 2); WHITE CELLS - URINE 0-5 HPF (0-4)
== END | disposition home or self-care (01) ==
LOC: D.LAB 12:08
PROVIDERS: ATTEND Family Medicine
DX: M54.9 Dorsalgia, unspecified (principal); E11.9 Type 2 diabetes mellitus without complications; E78.49 Other hyperlipidemia; K21.9 Gastro-esophageal reflux disease without esophagitis; Z00.00 Encounter for general adult medical examination without abnormal findings

== ENCOUNTER → 2020-06-14 11:28 | Outpatient (CLI) | payer OTHER ==
[2018-04-27 10:32] VITALS: BMI 26.2
== END | disposition home or self-care (01) ==
LOC: D.LAB 11:28
PROVIDERS: ATTEND Family Medicine
DX: E11.9 Type 2 diabetes mellitus without complications (principal)

== ENCOUNTER → 2020-07-06 11:21 | Outpatient (CLI) | payer OTHER ==
[2018-04-27 10:32] VITALS: BMI 26.2
--- NOTE | 2020-07-06 16:12 | NUR ---
PATIENT HAS REFUSED MRI BRAIN WITHOUT, MRA HEAD WITHOUT, AND MRA NECK WITHOUT. PATIENT STATES HE "HE HAS NEVER BEEN ABLE TO DO THE MRI HE IS TOO CLAUSTROPHOBIC" PATIENT WOULD NOT COME DOWN TO TRY. LEIDY RIVERA NOTIFIED.
== END | disposition home or self-care (01) ==
LOC: D.RAD 11:21
PROVIDERS: ATTEND Internal Medicine Pulmonary Disease
DX: J44.9 Chronic obstructive pulmonary disease, unspecified (principal)

== ENCOUNTER → 2020-07-10 12:54 | Outpatient (CLI) | payer OTHER ==
[2018-04-27 10:32] VITALS: BMI 26.2
== END | disposition home or self-care (01) ==
LOC: D.LABREF 12:54
PROVIDERS: ATTEND Family Medicine
DX: Z87.01 Personal history of pneumonia (recurrent) (principal)